=== PATIENT | female | born 1965 | race Hispanic/Latino ===

== ENCOUNTER 2018-09-20 21:38 | Observation (INO) | payer OTHER ==
[~2018-09-20] VITALS: Ht 149.9 cm; Wt 90.7 kg
[2018-09-20] MEDS ORDERED: ONDANSETRON HCL INJ 2 MG/ML VIAL IV STA (22:01)
[2018-09-20] MEDS ORDERED: MORPHINE SULFATE INJ 4 MG/ML INJ IV PRN (22:15)
--- NOTE | 2018-09-20 22:32 | Diagnostic Imaging Report ---
EXAMINATION: CXR 1 [facility] INDICATION: Left-sided chest pain. ^20180920 ^2210 COMPARISON: None FINDINGS: TUBES and LINES: None. LUNGS: Lungs are moderately inflated. Lungs are clear. There is no evidence of pneumonia or pulmonary edema. PLEURA: No pleural effusion or pneumothorax. HEART AND MEDIASTINUM: The cardiomediastinal silhouette is unremarkable. BONES AND SOFT TISSUES: No acute osseous lesion. Soft tissues are unremarkable. UPPER ABDOMEN: No free air under the diaphragm. IMPRESSION: No acute thoracic abnormality. Signed by: DR. Inderjit Laird MD on 09/20/2018 10:29 PM
[2018-09-20] MEDS ORDERED: CLONIDINE HCL 0.1 MG TAB PO ONE (23:15)
[2018-09-20] MEDS ORDERED: ASPIRIN 81 MG CHEW TAB PO ONE (23:45)
[2018-09-20] MEDS ORDERED: FAMOTIDINE 20 MG TAB PO SCH (23:45)
[2018-09-20] MEDS ORDERED: NITROGLYCERIN 0.4 MG SUBL SL PRN (23:45)
--- OUTSIDE RECORDS SUMMARY | 2018-09-20 23:57 | XMS REPORT ---
Author Author [facility] Address Unknown Phone Unavailable Care Team Providers Care Roving Technician Name Role Phone Dangelo FERRELL Unavailable Unavailable Problems This patient has no known problems. Allergies, Adverse Reactions, Alerts This patient has no known allergies or adverse reactions. Medications This patient has no known medications. Results Test Description Test Time Test Comments Text Results Atomic Results Result Comments CXR 1 [facility] 2018-09-20 22:28:00 [place] [address] Patient Name: HELIO LIANG MR #: [id number] : 1965 Age/Sex: 53/F Req #: [id number] [facility] Physician: Ordered by: VALERI FERRELL MD Report #: [id number] Location: [facility] Room/Bed: Procedure: [id number] HOPD/CXR 1 [facility] Exam Date: 09/20/18 Exam Time: 2209 REPORT STATUS: Signed EXAMINATION: CXR 1 [facility] INDICATION: Left-sided chest pain. [id number] COMPARISON: None FINDINGS: TUBES and LINES: None. LUNGS: Lungs are moderately inflated. Lungs are clear. There is no evidence of pneumonia or pulmonary edema. PLEURA: No pleural effusion or pneumothorax. HEART AND MEDIASTINUM: The cardiomediastinal silhouette is unremarkable. BONES AND SOFT TISSUES: No acute osseous lesion. Soft tissues are unremarkable. UPPER ABDOMEN: No free air under the diaphragm. IMPRESSION: No acute thoracic abnormality. Signed by: DR. Inderjit Laird MD on 09/20/2018 10:29 PM Dictated By: INDREJIT LAIRD MD 28 Transcribed By: NOMAN on 09/20/182228 COPY TO: VALERI FERRELL MD
[2018-09-21] MEDS ORDERED: SODIUM CHLORIDE 0.9% 1000ML 1,000 ML IV ONE
[2018-09-21] MEDS ORDERED: HYDROCHLOROTHIA25 MG (00:14)
[2018-09-21] MEDS ORDERED: AMLODIPINE BESYL5 MG PO (00:14)
[2018-09-21 01:32] VITALS: BP 198/118
[2018-09-21 01:58] VITALS: BP 102/62
[2018-09-21 04:00] VITALS: BP 102/62
[2018-09-21 06:25] LABS: CREATINE KINASE 49 IU/L (29-168)
[2018-09-21 06:32] LABS: BASOPHILS % 0.4 % (0.0-1.0); EOSINOPHILS # (AUTO) 0.1 (0.0-0.4); EOSINOPHILS % 1.6 % (0.0-6.0); HEMATOCRIT 36.9 % (34.2-44.1); HEMOGLOBIN 12.1 g/dL (12.0-16.0); LYMPHOCYTES # (AUTO) 2.2 (1.0-3.2); LYMPHOCYTES % 30.6 % (18.0-39.1); MEAN CORPUSCULAR HEMOGLOBIN 28.5 pg (28-32); MEAN CORPUSCULAR HGB CONC 32.8 g/dL (31-35); MONOCYTES # (AUTO) 0.5 (0.2-0.8); MONOCYTES % 7.6 % (4.4-11.3); NEUTROPHILS # (AUTO) 4.2 (2.1-6.9); NEUTROPHILS % 59.2 % (38.7-80.0); PLATELET COUNT 194 x10e3/uL (140-360); RED BLOOD COUNT 4.24 x10e6/uL (3.6-5.1); RED CELL DISTRIBUTION WIDTH 13.2 % (11.7-14.4)
[2018-09-21 06:45] LABS: CHOL/HDL RATIO 3.7 (3.0-3.6)
[2018-09-21 06:49] LABS: ANION GAP 13.2 mmol/L (8-16); BLOOD UREA NITROGEN 15 mg/dL (7-26); BUN/CREATININE RATIO 23 (6-25); CALCIUM 8.7 mg/dL (8.4-10.2); CARBON DIOXIDE 24 mmol/L (22-29); CHLORIDE 108 mmol/L (98-107); CREATININE, SERUM 0.66 mg/dL (0.57-1.11); EST GLOMERULAR FILTRATION RATE > 60 ML/MIN (60-); GLUCOSE 104 mg/dL (74-118); POTASSIUM 4.2 mmol/L (3.5-5.1); SODIUM 141 mmol/L (136-145)
[2018-09-21 07:11] LABS: THYROID STIMULATING HORMONE 2.595 uIU/mL (0.350-4.940)
[2018-09-21] MEDS ORDERED: ACETAMINOPHEN 325 MG TAB PO PRN (07:15)
[2018-09-21] MEDS ORDERED: FAMOTIDINE 20 MG TAB PO SCH (07:30)
[2018-09-21 07:41] VITALS: BP 111/60
[2018-09-21] MEDS: PANTOPRAZOLE SOD 40 MG TABEC PO SCH ×2 (08:28→08:30)
[2018-09-21] MEDS: CALCIUM CARBONATE 500 MG CHEWABLE TABS PO SCH ×2 (08:28→08:30)
[2018-09-21] MEDS ORDERED: ASPIRIN 81 MG ENTERIC COATED PO SCH (09:00)
[2018-09-21 09:48] VITALS: BP 111/60
--- NOTE | 2018-09-21 10:39 | History and Physical ---
CHIEF COMPLAINT: Epigastric discomfort and chest discomfort. HISTORY OF PRESENT ILLNESS: This is a 53-year-old woman with a history of morbid obesity who initially developed dyspepsia after having breakfast, having significant nausea, unable to eat lunch and then she developed a left sided chest pain, described as sharp without any radiation. She had no shortness of breath but she had a nausea. Also had a headache in the posterior neck region. Never had a stress test before. Does not smoke. Chest discomfort persist. Patient notes that the headache has been ongoing; however, for one month. PAST MEDICAL HISTORY: Hypertension and morbid obesity. PAST SURGICAL HISTORY: Hysterectomy, appendectomy, and lumpectomy bilaterally. ALLERGIES: PER ELECTRONIC MEDICAL RECORDS. SOCIAL HISTORY: The patient is . She has 4 child. No alcohol, illicits, or cigarettes. 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 MEDICATIONS: Per electronic medical records. REVIEW OF SYSTEMS: Denies any fever, chills, and sweats. Denies any vomiting or diarrhea. Denies any vision changes. Denies any leg pain and back pain. PHYSICAL EXAMINATION VITAL SIGNS: Reviewed. GENERAL: A tired-appearing man, resting in bed. HEENT: Anicteric. CARDIOVASCULAR: Normal S1 and S2. LUNGS: Moderate breath sounds. ABDOMEN: Soft and nondistended. She has epigastric tenderness. EXTREMITIES: No edema. SKIN: Dry. PSYCHIATRIC: Normal affect. NEUROLOGICAL: Alert and oriented times 3. Moving all extremities. MUSCULOSKELETAL: She has right sided chest discomfort on palpation. LABS: Reviewed. MEDICATIONS: Reviewed. ASSESSMENT: This is a 53-year-old woman with 1. Hypertensive emergency with chest pain. 2. Chest pain likely musculoskeletal. 3. Super morbid obesity. BMI is 40.4. 4. Dyspepsia. 5. Headache. PLAN 1. Trending cardiac enzymes. First one here is negative. 2. LDL is 83 and triglyceride is 107. We will treat with anticholesterol medication. 3. The thyroid is at normal level. 4. Screen for diabetes. 5. Hemoglobin A1c 5.1 now. He does not have diabetes. 6. We will use pantoprazole for dyspepsia and TUMS. 7. He has severe obesity and had hypertensive emergency. Her blood pressure has since significantly improved and now it is somewhat low, we will monitor blood pressure. We will consult cardiology and continue trending cardiac enzymes. We will treat her headache with Tylenol. Job#: [id number] RAND
[2018-09-21 11:26] VITALS: BP 129/63
[2018-09-21] MEDS ORDERED: ACETAMINOPHEN/CODEINE 300MG - 30MG TAB PO PRN (11:45)
[2018-09-21] MEDS ORDERED: ENOXAPARIN SOD INJ 40 MG/0.4 ML SYR SC SCH (17:00)
[2018-09-21] MEDS ORDERED: ATORVASTATIN 40 MG TAB PO SCH (21:00)
--- NOTE | 2018-09-21 23:01 | Consultation ---
DATE OF CONSULTATION: September 21, 2018 REASON FOR CONSULTATION: Chest pain. HISTORY: This is a 53-year-old lady who is known with hypertension, obesity. After having breakfast, she felt the food is back in her chest. He started having nausea. She was unable to eat lunch; and after that, she developed very vague chest pain over the left chest. The pain is very vague, not typical for any angina or pleuritic chest pain. It seems she is doing better now. 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 She is denying having any symptoms now. She does admit to having nausea and vomiting every now and then and GI discomfort. There is no hematemesis and no melena. She denied having any anginal chest pain, although she does have easy fatigability and shortness of breath on exertion. She is to certain extent active. There is no no paroxysmal nocturnal dyspnea, no syncope or presyncope. PAST MEDICAL HISTORY 1. Hypertension. 2. Obesity. 3. Hysterectomy. 4. Appendectomy. 5. Bilateral lumpectomy. ALLERGIES: NONE. HOME MEDICATIONS 1. Amlodipine 5 mg a day. 2. Hydrochlorothiazide 12.5 mg a day. REVIEW OF SYSTEMS: Done to all systems, only pertinent positive and negative one will be summarized for clarity. GENERAL: No fever. No chills. No weight loss. PULMONARY: No cough. No hemoptysis. No pleuritic chest pain. No hormone use. No recent travel. CARDIAC: As per acute illness. GI: Repeated bloating, indigestion, and GI discomfort, but no hematemesis, no melena. : No hematuria. No dysuria. MUSCULOSKELETAL: Nonspecific aches. ENDOCRINE: No symptoms to suggest diabetes. HEMATOLOGY: No easy bruising or bleeding. FAMILY HISTORY: Father of homicide at age 49. Mother doing well at age 76. Five siblings, 1 brother, 4 sisters. One sister is diabetic and hypertensive. Four sons, all are healthy and active, 3 of them are policemen. PHYSICAL EXAMINATION VITALS: Height 4 feet 11 inches, weight of 200 pounds. Blood pressure 130/60, heart rate of 60, and respiratory rate of 18. Afebrile. HEENT: Pupils are equal and reactive. NECK: No elevation of jugular venous pulsation. CHEST: Clear to auscultation and percussion. HEART: PMI 5th left intercostal space, 1st and 2nd heart sounds. ABDOMEN: Soft with good bowel sounds. EXTREMITIES: No cyanosis. No clubbing. No edema. NEUROLOGIC: Nonfocal. LAB DATA: Two sets of cardiac enzymes are normal. Basic metabolic profile showed sodium of 141, potassium of 4.2, BUN of 15, and creatinine of 0.7. White blood cell count of 7000. Hemoglobin 12.1, hematocrit 37%, platelet count of . EKG showing no acute changes. IMPRESSIONS 1. Hypertension. 2. Obesity. 3. Definite gastrointestinal symptoms. 4. History of headaches. 5. Chest pain, very very atypical. PLAN: We discussed cardiac differential diagnosis. Her chest pain sounds to be noncardiac. Furthermore, her LDL only at 83, although her HDL is low at 38. Her hemoglobin A1c also at 5.1%. She is a nonsmoker. No family history of premature coronary artery disease. With all of that, that will decrease the probability of having coronary artery disease. I explained the patient she should have a stress test. However, she is insisting on going home because she needs to prepare the payroll, etc. In view of that, if patient stays in the hospital, we will do her stress test in the morning. Otherwise, she is instructed to come to our office to have her stress test tomorrow after she finishes her work. Job#: [id number] CF
== END 2018-09-21 13:21 | disposition home or self-care (01) ==
LOC: FSED 21:38 → ERHOLD 23:54 → IMCU 09-21 00:56
PROVIDERS: ADMIT Internal Medicine; ATTEND Internal Medicine
DX: R10.13 Epigastric pain (principal); R07.89 Other chest pain; E66.01 Morbid (severe) obesity due to excess calories; Z68.41 Body mass index [BMI] 40.0-44.9, adult; I16.1 Hypertensive emergency; I10 Essential (primary) hypertension; R51 Headache
CPT/HCPCS: 36415; 71045; 80048; 80053; 80061; 82550; 82553; 83036; 84443; 84484 ×2; 85025 ×2; 93005; 99284; G0378 ×2; S0164